=== PATIENT | male | born 1945 | race Caucasian/White ===

== ENCOUNTER → 2018-01-26 09:21 | Outpatient (CLI) | payer MEDICARE, BC ==
[2013-09-19 06:42] VITALS: BMI 25.1
[~2018-01-26 09:21] MED LIST: CIPRO500 MG PO; FLOMAX0.4 MG PO; MIRALAX17 GM PO; PENTOXIFYLLINE400 MG PO; PRILOSEC20 MG PO; TOPROL XL50 MG PO; ZYLOPRIM300 MG PO
== END | disposition home or self-care (01) ==
LOC: D.US 09:21
DX: R79.89 Other specified abnormal findings of blood chemistry (principal)

== ENCOUNTER 2018-06-19 13:09 | Emergency (ER) | payer MEDICARE, BC ==
[~2018-06-19] VITALS: Ht 180.3 cm; Wt 75.0 kg
[2018-06-19 13:14] VITALS: Ht 180.3 cm; Wt 75.0 kg
[2018-06-19 13:40] LABS: BASOPHILS 0.3 % (0-2); EOSINOPHILS 2.8 % (0-7); HEMATOCRIT 40.7 % (42.0-54.0); HEMOGLOBIN 14.2 g/dL (13.5-17.5); IMMATURE GRANULOCYTES 0.4 % (0-5); MCH 31.6 pg (26.0-34.0); MCHC 34.9 g/dL (31.0-37.0); MCV 90.6 fL (80.0-100.0); MEAN PLATELET VOLUME 10.2 fL (7.4-10.4); MONOCYTES 6.5 % (2-11); PLATELET COUNT 119 10x3/uL (130-400); RBC 4.49 10x6/uL (4.20-6.10); RDW 13.1 % (11.5-14.5); WBC 9.2 10x3/uL (4.8-10.8)
[2018-06-19 14:01] LABS: ALBUMIN 3.9 g/dL (3.4-5.0); ANION GAP 12.8 mmol/L (8-16); BILIRUBIN - TOTAL 0.64 mg/dL (0.2-1.3); CALCIUM 9.1 mg/dL (8.5-10.1); CARBON DIOXIDE 29.2 mmol/L (21.0-32.0); CREATININE - SERUM 1.1 mg/dL (0.6-1.3); PROTEIN - SERUM 7.8 g/dL (6.4-8.2)
[2018-06-19 14:30] VITALS: BP 129/55
== END 2018-06-19 15:22 | disposition home or self-care (01) ==
LOC: D.ER 13:09
PROVIDERS: Emergency Medicine
DX: Z71.1 Person with feared health complaint in whom no diagnosis is made (principal)

== ENCOUNTER → 2019-07-10 14:11 | Outpatient (CLI) | payer MEDICARE, BC ==
[2018-06-19 13:14] VITALS: BMI 23.0
[2019-07-10 16:14] LABS: HEMATOCRIT 41.5 % (42.0-54.0); HEMOGLOBIN 13.5 g/dL (13.5-17.5); MCH 29.6 pg (26.0-34.0); MCHC 32.5 g/dL (31.0-37.0); MEAN PLATELET VOLUME 10.2 fL (7.4-10.4); RBC 4.56 10x6/uL (4.20-6.10); RDW 14.2 % (11.5-14.5); WBC 9.6 10x3/uL (4.8-10.8)
[2019-07-10 16:19] LABS: PLATELET COUNT 168 10x3/uL (130-400)
[2019-07-10 16:26] LABS: EOSINOPHILS 1 % (0-7); LYMPHOCYTES 40 % (15-50); MONOCYTES 1 % (2-11); NEUTROPHILS 57 % (40-80); PLATELET ESTIMATE NORMAL
== END | disposition home or self-care (01) ==
LOC: D.LABREF 14:11
PROVIDERS: ATTEND Legal Medicine
DX: R79.89 Other specified abnormal findings of blood chemistry (principal)